=== PATIENT | female | born 1965 | race Two or more races ===

== ENCOUNTER 2016-11-02 16:54 | Emergency (ER) | payer OTHER ==
[~2016-11-02] VITALS: Ht 160 cm; Wt 83.5 kg
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
--- NOTE | 2016-11-02 17:45 | NUR ---
PT TO CT
[2016-11-02] MEDS ORDERED: ACETAMINOPHEN ES 500 MG TABLET PO ONE (18:00)
[2016-11-02] MEDS ORDERED: HYDROCODONE/APAP 5/325MG 1 EACH TABLET ONE (18:50)
[2016-11-02] MEDS: HYDROCODONE/APAP 5/325MG 1 EACH TABLET PO ONE (19:04)
[2016-11-02 19:17] VITALS: BP 145/78
== END 2016-11-02 19:18 | disposition home or self-care (01) ==
LOC: ER 16:57
DX: S09.90XA Unspecified injury of head, initial encounter (principal); S00.531A Contusion of lip, initial encounter; S00.81XA Abrasion of other part of head, initial encounter; S80.211A Abrasion, right knee, initial encounter; E03.9 Hypothyroidism, unspecified; E11.9 Type 2 diabetes mellitus without complications; I10 Essential (primary) hypertension; Z79.4 Long term (current) use of insulin; V89.2XXA Person injured in unspecified motor-vehicle accident, traffic, initial encounter; Y93.89 Activity, other specified; Y92.488 Other paved roadways as the place of occurrence of the external cause; Y99.8 Other external cause status
CPT/HCPCS: 70450-TC; 70486-TC; 73564-TC; 82962-TC; A4606; Z7610